=== PATIENT | male | born 1965 | race Caucasian/White ===

== ENCOUNTER 2017-07-25 00:31 | Emergency (ER) | payer SELFPAY ==
[~2017-07-25] VITALS: Ht 172.7 cm; Wt 68.0 kg
[~2017-07-25 00:31] MED LIST: AZIT250T13 PO; AZIT500V6 PO; ESOM40CA PO; FENT1PAT10 TD
--- NOTE | 2017-07-25 01:09 | NUR ---
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
[2017-07-25 01:53] VITALS: BP 140/82
== END 2017-07-25 01:53 | disposition home or self-care (01) ==
LOC: ER 00:33
DX: S60.221A Contusion of right hand, initial encounter (principal); S40.011A Contusion of right shoulder, initial encounter; G62.9 Polyneuropathy, unspecified; F43.10 Post-traumatic stress disorder, unspecified; F17.200 Nicotine dependence, unspecified, uncomplicated; Z88.6 Allergy status to analgesic agent; W01.198A Fall on same level from slipping, tripping and stumbling with subsequent striking against other object, initial encounter; Y93.89 Activity, other specified; Y92.89 Other specified places as the place of occurrence of the external cause; Y99.8 Other external cause status
CPT/HCPCS: 73030; 99284; 99406; A4606; Z7610